=== PATIENT | female | born 1985 | race Caucasian/White ===

== ENCOUNTER 2017-07-14 15:42 | Emergency (ER) | payer OTHER ==
[2017-07-14 15:52] VITALS: RESP 18
--- NOTE | 2017-07-14 15:57 | ED ---
Abdominal Pain HPI - General Chief Complaint: Abdominal Pain Stated Complaint: abdominal pain-sent by [facility] Time Seen by Provider: 07/14/17 15:45 Source: patient Mode of arrival: ambulatory Limitations: no limitations - History of Present Illness Initial Comments: This is a 31-year-old female with no past medical history who presents here department for right pelvic pain. She states it started yesterday. She states that it is constant nothing seems to make it better or worse. She states she has not had any dysuria or hematuria. No vaginal bleeding or discharge. She states that she is 5 months and is breast-feeding and has not had a period since the delivery which is typical for her. She states that she has not had any fevers or chills. She's had little bit of nausea but no vomiting. No diarrhea or constipation. [facility] her here for further evaluation. No other complaints. - Related Data Home Medications Medication Instructions Recorded Confirmed 114/Iron A-G/Folate 1 1 tab PO HS 12/03/14 07/14/17 [Prenate Elite Tablet] Thyroid,Pork [[place] Thyroid] 60 mg PO DAILY 02/10/17 07/14/17 Sertraline [Zoloft] 100 mg PO HS 07/14/17 07/14/17 Allergies Allergy/AdvReac Type Severity Reaction Status Date / Time No Known Allergies Allergy Verified 07/14/17 16:00 Review of Systems ROS Statement: Those systems with pertinent positive or pertinent negative responses have been documented in the HPI. ROS Other: All systems not noted in ROS Statement are negative. Past Medical History Past Medical History: Asthma History of Any Multi-Drug Resistant Organisms: None Reported Past Surgical History: Section, Tonsillectomy Additional Past Surgical History / Comment(s): finger surgery as a child Past Anesthesia/Blood Transfusion Reactions: No Reported Reaction Past Psychological History: No Psychological Hx Reported Smoking Status: Never smoker Past Alcohol Use History: None Reported Past Drug Use History: None Reported - Past Family History Mother Family Medical History: Rheumatoid Arthritis (RA) General Exam - General Exam Comments Initial Comments: Constitutional: Awake alert Appears comfortable Head: Normocephalic atraumatic Eyes: no conjunctival injection No scleral icterus EOMI Neck: No JVD Supple Heart: Regular rate rhythm normal S1-S2 no murmurs Lungs: Clear to auscultation bilaterally No wheezing No rales Abdomen: Soft nondistended is tenderness to palpation in the suprapubic and right pelvic region. No tenderness to palpation over McBurney's point. No rebound or guarding. Extremities: Non edematous DP pulses intact Radial pulses intact Neuro: A&Ox3 No focal neurologic deficits Psych: Appropriate mood and affect Limitations: no limitations Course Vital Signs 07/14/17 07/14/17 15:48 16:49 Temperature 98.6 F 98.5 F Pulse Rate 68 63 Respiratory 18 18 Rate Blood Pressure 128/80 127/82 O2 Sat by Pulse 98 97 Oximetry Medical Decision Making - Medical Decision Making This is a 31-year-old female who presents emergency department for right pelvic pain. She had an ultrasound that showed a moderate amount of free fluid however no other abnormalities. The patient again does not have any tenderness over McBurney's point. She has no leukocytosis. No fevers or chills. I did have a long discussion with her that this could possibly represent appendicitis however the patient states that she does not want to wait for a computed tomography scan to be performed. She states that she does not feel like it is that severe and wants to go home. I told her that delaying diagnosis of appendicitis couldn't be due to more severe infection and possible rupture however stated that she would keep very close eye on it at home and if it seemed to persist or worsen she would return emergency department. I told her that she needs to be seen within the next 1-2 days by her primary doctor. If she has pain that is persistent or worsens in the next 24 hours she needs to return the emergency Department. At this time going to send her home. She can take Motrin or Tylenol as needed for pain. All questions were answered. - Lab Data Result diagrams: 07/14/17 16:03 07/14/17 16:03 Lab Results 07/14/17 07/14/17 Range/Units 16:03 16:03 WBC 5.9 (3.8-10.6) k/uL RBC 4.32 (3.80-5.40) m/uL Hgb 12.7 (11.4-16.0) gm/dL Hct 36.9 (34.0-46.0) % MCV 85.3 (80.0-100.0) fL MCH 29.3 (25.0-35.0) pg MCHC 34.4 (31.0-37.0) g/dL RDW 14.0 (11.5-15.5) % Plt Count 177 (150-450) k/uL Neutrophils % 69 % Lymphocytes % 19 % Monocytes % 4 % Eosinophils % 7 % Basophils % 0 % Neutrophils # 4.0 (1.3-7.7) k/uL Lymphocytes # 1.1 (1.0-4.8) k/uL Monocytes # 0.2 (0-1.0) k/uL Eosinophils # 0.4 (0-0.7) k/uL Basophils # 0.0 (0-0.2) k/uL Sodium 141 (137-145) mmol/L Potassium 4.0 (3.5-5.1) mmol/L Chloride 107 (98-107) mmol/L Carbon Dioxide 25 (22-30) mmol/L Anion Gap 9 mmol/L BUN 15 (7-17) mg/dL Creatinine 0.83 (0.52-1.04) mg/dL Est GFR (MDRD) Af Amer >60 (>60 ml/min/1.73 sqM) Est GFR (MDRD) Non-Af >60 (>60 ml/min/1.73 sqM) Glucose 94 (74-99) mg/dL Calcium 9.1 (8.4-10.2) mg/dL Total Bilirubin 0.3 (0.2-1.3) mg/dL AST 21 (14-36) U/L ALT 34 (9-52) U/L Alkaline Phosphatase 66 (38-126) U/L Total Protein 6.5 (6.3-8.2) g/dL Albumin 4.1 (3.5-5.0) g/dL HCG, Quant <2.4 mIU/mL Disposition Clinical Impression: Abdominal pain Disposition: HOME SELF-CARE Condition: Stable Instructions: Abdominal Pain (ED) Additional Instructions: You need to be seen by your family doctor in 1-2 days for re-evaluation. If your pain is persistent beyond 48 hours and you haven't seen your physician you need to return to the ER for evaluation. You should return to the ER for any worsening pain, fevers, chills, nausea, vomiting or any other concerning symptoms. Referrals: None,Stated [Primary Care Provider] - 1-2 days
[2017-07-14 16:16] LABS: Basophils % (A) 0 %; CH 29.9; CHCM 35.2; Eosinophils # (A) 0.4 k/uL (0-0.7); Eosinophils % (A) 7 %; HCT 36.9 % (34.0-46.0); HDW 2.78; HGB 12.7 gm/dL (11.4-16.0); Luc # (Auto) 0.07; Luc % (Auto) 1; Lymphocytes # (A) 1.1 k/uL (1.0-4.8); Lymphocytes % (A) 19 %; MCH 29.3 pg (25.0-35.0); MCHC 34.4 g/dL (31.0-37.0); MCV 85.3 fL (80.0-100.0); Mean Platelet Volume 8.6; Monocytes # (A) 0.2 k/uL (0-1.0); Monocytes % (A) 4 %; Neutrophils % (A) 69 %; RBC 4.32 m/uL (3.80-5.40); WBC 5.9 k/uL (3.8-10.6); WBC (Perox) 5.81
[2017-07-14 16:32] LABS: ALT 34 U/L (9-52); AST 21 U/L (14-36); Alkaline Phosphatase 66 U/L (38-126); Anion Gap 9 mmol/L; Blood Urea Nitrogen 15 mg/dL (7-17); Calcium 9.1 mg/dL (8.4-10.2); Carbon Dioxide 25 mmol/L (22-30); Chloride 107 mmol/L (98-107); Glucose 94 mg/dL (74-99); Non-African American GFR(MDRD) >60 (>60 ml/min/1.73 sqM); Sodium 141 mmol/L (137-145); Total Bilirubin 0.3 mg/dL (0.2-1.3); Total Protein 6.5 g/dL (6.3-8.2)
[2017-07-14 16:50] VITALS: BP 127/82; PULSE 63; TEMP 98.5
--- NOTE | 2017-07-14 16:55 | US ---
EXAMINATION TYPE: US transvaginal DATE OF EXAM: 07/14/2017 COMPARISON: NONE CLINICAL HISTORY: R pelvic pain. TECHNIQUE: Transvaginal (TV) Date of LMP: Patient 5 months post , right lower quadrant pain EXAM MEASUREMENTS: Uterus: 7.4 x 3.4 x 4.5 cm Endometrial Stripe: 0.5 cm Right Ovary: 2.9 x 1.9 x 2.0 cm Left Ovary: 3.3 x 1.5 x 1.5 cm 1. Uterus: Retroflexed wnl 2. Endometrium: wnl 3. Right Ovary: wnl 4. Left Ovary: wnl Spectral, color and waveform doppler imaging shows good arterial and venous flow within the ovaries ; there is no evidence for ovarian torsion. 5. Bilateral Adnexa: wnl 6. Posterior cul-de-sac: mild to moderate amount of fluid IMPRESSION: Free fluid within the pelvis.
== END 2017-07-14 17:20 | disposition home or self-care (01) ==
LOC: EC 15:42
DX: R10.9 Unspecified abdominal pain (principal); R11.0 Nausea; Z79.899 Other long term (current) drug therapy
CPT/HCPCS: 36415; 76830; 80053; 84702; 85025; 93975; 99284